=== PATIENT | female | born 1975 | race Caucasian/White ===

== ENCOUNTER → 2017-02-10 | Outpatient (CLI) | payer BC ==
--- NOTE | 2017-02-14 15:06 | MG ---
HISTORY: SCREENING Comparison: None available. FINDINGS: Bilateral CC and MLO projections of the right and left breast were obtained. Heterogeneously dense f ibroglandular tissue is seen to be present. 1.3 cm outer left breast focal asymmetry posterior depth approximately 5.9 cm from the nipple. No obvious architectural distortion or suspicious microcalcifi cations. No skin thickening or nipple retraction is appreciated. No pathological lymphadenopathy c an be identified. IMPRESSION: 1. No mammographic evidence of malignancy right breast. 2. 1.3 cm focal asymmetry left breast as above. ACR CATEGORY: 0 - assessment incomplete. Spot compression views and targeted ultrasound of the left breast. Diagnostic CAD was utilized and reviewed. * 0 (ZERO) - ASSESSMENT INCOMPLETE; ADDITIONAL IMAGING IS NEEDED. * 1/1 (ONE) - NEGATIVE. * 2/II (TWO) - BENIGN FINDINGS. * 3/III (THREE) - PROBABLY BENIGN FINDING; SHORT INTERVAL FOLLOW-UP SUGGESTED. * 4/IV (FOUR) - SUSPICIOUS ABNORMALITY; BIOPSY SHOULD BE CONSIDERED. * 5/V - HIGHLY SUSPICIOUS OF MALIGNANCY; BIOPSY SHOULD BE PERFORMED. A NEGATIVE X-RAY REPORT SHOULD NOT DELAY BIOPSY IF A DOMINANT OR CLINICALLY SUSPICIOUS MASS IS PRESENT; 4 TO 8 PERCENT OF CANCERS ARE NOT IDENTIFIED BY X-RAY. A NEGA TIVE REPORT MAY REINFORCE THE CLINICAL IMPRESSION. ADENOSIS AND DENSE BREASTS MAY OBSCURE AN UNDERLY ING NEOPLASM. Reported By:
== END ==
LOC: RAD 16:20
PROVIDERS: ATTEND Family Medicine
DX: Z12.31 Encounter for screening mammogram for malignant neoplasm of breast (principal)
CPT/HCPCS: 77067

== ENCOUNTER → 2017-02-15 | Outpatient (CLI) | payer BC ==
[2017-02-21 06:46] LABS: VITAMIN D 25 OH 18 ng/mL (30-80)
== END ==
LOC: LAB 18:54
PROVIDERS: ATTEND Family Medicine
DX: E51.8 Other manifestations of thiamine deficiency (principal); E55.9 Vitamin D deficiency, unspecified
CPT/HCPCS: 36415; 82306; 84425

== ENCOUNTER → 2017-03-08 | Outpatient (CLI) | payer BC ==
--- NOTE | 2017-03-08 15:28 | US ---
HISTORY: Abnormal screening mammogram, left breast focal asymmetry Comparison: 02/10/2017 FINDINGS: Left diagnostic mammogram: Spot compression CC and MLO projections of the left breast and lateral vie w were obtained. Heterogeneously dense fibroglandular tissue is present. Again noted is a 1.3 cm no dular density with lobular borders in lateral left breast. Ultrasound will be obtained for further ev aluation. No skin thickening or nipple retraction is appreciated. No pathological lymphadenopathy c an be identified. Left breast ultrasound: Targeted ultrasound was performed of the left breast. At the 4 o'clock positi on of the left breast, 2 cm from the nipple there is a mass with lobular, irregular borders and heter ogeneous echotexture measuring 1.6 x 1 x 1.1 cm. This lesion is mildly vascular with areas of posteri or shadowing noted. There is an additional small, smooth walled anechoic cystic lesion at 3 o'clock p osition in the left breast measuring 6 x 4 x 7 mm likely representing a benign cyst. IMPRESSION: At 4 o'clock position of the left breast there is a mass with heterogeneous echotexture and lobular, irregular borders measuring 1.6 x 1 x 1.1 cm. Biopsy of this lesion is recommended. Ther e is an adjacent benign-appearing cyst at the 3 o'clock position ACR CATEGORY 4: Suspicious abnormality Diagnostic CAD was utilized and reviewed. * 0 (ZERO) - ASSESSMENT INCOMPLETE; ADDITIONAL IMAGING IS NEEDED. * 1/ (ONE) - NEGATIVE. * 2/II (TWO) - BENIGN FINDINGS. * 3/III (THREE) - PROBABLY BENIGN FINDING; SHORT INTERVAL FOLLOW-UP SUGGESTED. * 4/IV (FOUR) - SUSPICIOUS ABNORMALITY; BIOPSY SHOULD BE CONSIDERED. * 5/V - HIGHLY SUSPICIOUS OF MALIGNANCY; BIOPSY SHOULD BE PERFORMED. A NEGATIVE X-RAY REPORT SHOULD NOT DELAY BIOPSY IF A DOMINANT OR CLINICALLY SUSPICIOUS MASS IS PRESENT; 4 TO 8 PERCENT OF CANCERS ARE NOT IDENTIFIED BY X-RAY. A NEGA TIVE REPORT MAY REINFORCE THE CLINICAL IMPRESSION. ADENOSIS AND DENSE BREASTS MAY OBSCURE AN UNDERLY ING NEOPLASM. Reported By:
== END | disposition home or self-care (01) | DRG 601 ==
LOC: RAD 14:01
PROVIDERS: ATTEND Family Medicine
DX: R92.8 Other abnormal and inconclusive findings on diagnostic imaging of breast (principal); N63.0 Unspecified lump in unspecified breast
CPT/HCPCS: 76642; 77065

== ENCOUNTER → 2017-03-22 | Outpatient (CLI) | payer BC ==
--- NOTE | 2017-03-23 08:23 | US ---
HISTORY: Left breast nodule Study: Ultrasound-guided left breast biopsy Comparison: March 08, 2017 and February 10, 2017 Procedure: The risk, benefits, and alternatives were discussed. Informed consent was obtained. Time o ut was performed. Sonographic guidance was utilized to localize the optimal percutaneous biopsy site for a hypoechoic nodule at 4 o'clock on the left. The patient was prepped, draped, and anesthetized i n the usual sterile fashion. A 14 gauge Bard coaxial system was advanced to the region of interest, a nd multiple core samples were obtained. A biopsy clip was placed. The patient tolerated the procedur e well without immediate postprocedure complication. IMPRESSION: Technically successful ultrasound-guided left breast biopsy. Reported By:
== END | disposition home or self-care (01) | DRG 601 ==
LOC: RAD 09:22
PROC: 0HBU3ZX Excision of Left Breast, Percutaneous Approach, Diagnostic (ICD-10-PCS; principal; 2017-03-22)
DX: R92.8 Other abnormal and inconclusive findings on diagnostic imaging of breast (principal); D24.2 Benign neoplasm of left breast
CPT/HCPCS: 19083